=== PATIENT | male | born 1960 | race Hispanic/Latino ===

== ENCOUNTER 2021-01-16 13:43 | Emergency (ER) | payer SELFPAY ==
[2021-01-16 13:49] VITALS: BP 176/93
[2021-01-16] MEDS ORDERED: ACETAMINOPHEN 325 MG TAB PO ONE (13:56)
[2021-01-16] MEDS ORDERED: IBUPROFEN 800 MG TAB PO ONE (13:56)
--- NOTE | 2021-01-16 14:00 | Emergency Department Report ---
ED ENT HPI - General Chief complaint: Earache Stated complaint: EARACHE,BUMP INSIDE EAR CANAL Time Seen by Provider: 01/16/21 13:52 Source: patient Mode of arrival: Ambulatory Limitations: No Limitations - History of Present Illness Initial comments: 60 year old male presents to the ER today with complaints of severe left-sided ear pain. He states that symptoms started mildly yesterday and has since gotten severely worse. He reports swelling to his ear. He denies any drainage or bleeding from the ear. He denies any injury to his ear. He reports decreased hearing to the left ear. He denies any fever or chills. He denies any other symptoms at this time. MD complaint: ear pain -: days(s) (1) - Related Data Previous Rx's Medication Instructions Recorded Last Taken Type Acetaminophen/Codeine [Tylenol 1 tab PO Q6H PRN #12 tab 01/16/21 Unknown Rx /Codeine # 3 tab] Amoxicillin/Potassium Clav 1 each PO BID #14 tablet 01/16/21 Unknown Rx [Augmentin 875-125 Tablet] Ibuprofen [Motrin] 600 mg PO Q8H PRN #30 tablet 01/16/21 Unknown Rx Ofloxacin 0.3% [Floxin 0.3% Otic] 10 ml OT DAILY 7 Days #1 bottle 01/16/21 Unknown Rx Allergies Allergy/AdvReac Type Severity Reaction Status Date / Time No Known Allergies Allergy Verified 01/16/21 13:46 ED Dental HPI - General Chief complaint: Earache Stated complaint: EARACHE,BUMP INSIDE EAR CANAL Time Seen by Provider: 01/16/21 13:52 Source: patient Mode of arrival: Ambulatory Limitations: No Limitations - Related Data Previous Rx's Medication Instructions Recorded Last Taken Type Acetaminophen/Codeine [Tylenol 1 tab PO Q6H PRN #12 tab 01/16/21 Unknown Rx /Codeine # 3 tab] Amoxicillin/Potassium Clav 1 each PO BID #14 tablet 01/16/21 Unknown Rx [Augmentin 875-125 Tablet] Ibuprofen [Motrin] 600 mg PO Q8H PRN #30 tablet 01/16/21 Unknown Rx Ofloxacin 0.3% [Floxin 0.3% Otic] 10 ml OT DAILY 7 Days #1 bottle 01/16/21 Unknown Rx Allergies Allergy/AdvReac Type Severity Reaction Status Date / Time No Known Allergies Allergy Verified 01/16/21 13:46 ED Review of Systems ROS: Stated complaint: EARACHE,BUMP INSIDE EAR CANAL Other details as noted in HPI Comment: All other systems reviewed and negative ENT: ear pain Respiratory: denies: cough, shortness of breath, SOB with exertion, SOB at rest, wheezing Cardiovascular: denies: chest pain, palpitations, dyspnea on exertion, edema, syncope, paroxysmal nocturnal dyspnea Gastrointestinal: denies: abdominal pain, nausea, diarrhea, constipation, hematemesis, melena, hematochezia Genitourinary: denies: urgency, dysuria, frequency, hematuria, discharge, testicular pain, testicular mass Musculoskeletal: denies: back pain, joint swelling, arthralgia Skin: denies: rash, lesions Neurological: headache. denies: weakness, numbness, paresthesias, confusion, abnormal gait, vertigo Psychiatric: denies: anxiety, depression, auditory hallucinations, visual hallucinations, homicidal thoughts, suicidal thoughts Hematological/Lymphatic: denies: easy bleeding, easy bruising, swollen glands ED Past Medical Hx - Past Medical History Previous Medical History?: No - Surgical History Past Surgical History?: No - Medications Home Medications: Home Medications Medication Instructions Recorded Confirmed Last Taken Type Acetaminophen/Codeine [Tylenol 1 tab PO Q6H PRN #12 tab 01/16/21 Unknown Rx /Codeine # 3 tab] Amoxicillin/Potassium Clav 1 each PO BID #14 tablet 01/16/21 Unknown Rx [Augmentin 875-125 Tablet] Ibuprofen [Motrin] 600 mg PO Q8H PRN #30 tablet 01/16/21 Unknown Rx Ofloxacin 0.3% [Floxin 0.3% Otic] 10 ml OT DAILY 7 Days #1 bottle 01/16/21 Unknown Rx ED Physical Exam - General Limitations: No Limitations General appearance: alert, in distress (Patient appears uncomfortable from pain) - Head Head exam: Present: atraumatic, normocephalic, normal inspection - Eye Eye exam: Present: normal appearance, PERRL, EOMI Pupils: Present: normal accommodation - ENT ENT exam: Present: other (Left TM partially obscured due to the amount of swelling of the ear canal, no obvious perforation, no obvious infection to the ear drum) - Expanded ENT Exam Expanded TM/Canal exam: Erythema: Left TM (Moderate erythema noted to the ear canal as well as around the tragus.), Canal Discharge: Left TM (Swallow of clear yellow discharge noted), Canal Tenderness: Left TM (Significant tenderness to palpation on insertion of the otoscope and on palpation of the tragus) - Respiratory Respiratory exam: Absent: respiratory distress - Cardiovascular Cardiovascular Exam: Present: regular rate - Neurological Exam Neurological exam: Present: alert, oriented X3, CN II-XII intact, normal gait ED Course Vital Signs 01/16/21 13:47 Temperature 98.2 F Pulse Rate 82 Respiratory 16 Rate Blood Pressure 176/93 [Left] O2 Sat by Pulse 100 Oximetry ED Medical Decision Making - Medical Decision Making 1415: Patient with physical findings concerning for otitis externa. There is no obvious signs of perforation. Due to swelling of the ear canal, left eardrum only partially viewed, and no obvious signs of infection. She will be prescribed antibiotic eardrops, but he will also be given oral antibiotics to cover for possible cellulitis of the tragus and for possible otitis externa. No obvious associated abscess noted. Discussed concerning diagnosis and treatment plan with patient. He was instructed to avoid getting any water in his ear. Patient stable at time of discharge. Critical care attestation.: If time is entered above; I have spent that time in minutes in the direct care of this critically ill patient, excluding procedure time. ED Disposition Clinical Impression: Otitis externa Disposition: 01 HOME / SELF CARE / HOMELESS Is pt being admited?: No Does the pt Need Aspirin: No Condition: Stable Instructions: Otitis Externa Additional Instructions: Use the ear drops as prescribed and take the augmentin as prescribed. Take the motrin and the tylenol 3 as prescribed for pain. Try to avoid water in ear canal as much as possible. Return to ED if worse. Prescriptions: Amoxicillin/Potassium Clav [Augmentin 875-125 Tablet] 1 each PO BID #14 tablet Ofloxacin 0.3% [Floxin 0.3% Otic] 10 ml OT DAILY 7 Days #1 bottle Ibuprofen [Motrin] 600 mg PO Q8H PRN #30 tablet PRN Reason: Pain Acetaminophen/Codeine [Tylenol /Codeine # 3 tab] 1 tab PO Q6H PRN #12 tab PRN Reason: Pain , Severe (7-10) Referrals: [facility] [Provider Group] - 3-5 Days Print Language: LITHUANIAN
== END 2021-01-16 14:23 | disposition home or self-care (01) ==
LOC: ED 13:43
DX: H60.92 Unspecified otitis externa, left ear (principal)
CPT/HCPCS: 99282